=== PATIENT | male | born 1955 | race Caucasian/White ===

== ENCOUNTER 2017-05-14 12:45 | Inpatient (IN) | payer MEDICARE, MEDICAID ==
[~2017-05-14] VITALS: Ht 162.6 cm; Wt 77.7 kg
[~2017-05-14 12:45] MED LIST: ONDANSETRON 2MG/ML, 2ML ONE
[2017-05-14 14:00] VITALS: BP 136/85
[2017-05-14] MEDS ORDERED: LACTATED RINGERS 1,000 ML IV SCH (14:10)
[2017-05-14] MEDS ORDERED: PAIN MEDICATION PO (14:17)
[2017-05-14 14:31] LABS: BASOPHILS # (AUTO) 0.12 x10^3/uL (0-0.1); BASOPHILS % (AUTO) 1 % (0-1); EOSINOPHILS # (AUTO) 0.16 x10^3/uL (0-0.4); EOSINOPHILS % (AUTO) 2 % (1-7); LYMPHOCYTES # (AUTO) 1.96 x10^3/uL (1-3.4); LYMPHOCYTES % (AUTO) 19 % (22-44); MD NO; MEAN CORPUSCULAR HEMOGLOBIN 31.6 pg (27.5-34.5); MEAN CORPUSCULAR HGB CONC 34.5 g/dL (33.2-36.2); MEAN CORPUSCULAR VOLUME 91.7 fL (81-97); MEAN PLATELET VOLUME 8.1 fL (7.4-10.4); MICROSCOPIC NOT IND; MONOCYTES # (AUTO) 0.66 x10^3/uL (0.2-0.8); MONOCYTES % (AUTO) 6 % (2-9); NEUTROPHILS # (AUTO) 7.69 x10^3/uL (1.8-6.8); NEUTROPHILS % (AUTO) 73 % (42-75); PLATELET COUNT 321 x10^3/uL (130-400); RED BLOOD COUNT 5.17 x10^6/uL (4.38-5.82); RED CELL DISTRIBUTION WIDTH 13.1 % (9.4-14.8)
[2017-05-14 14:42] LABS: ALANINE AMINOTRANSFERASE 22 U/L (12-78); ALBUMIN 3.6 g/dL (3.4-5.0); ANION GAP 8 mmol/L (5-15); CALCIUM 8.9 mg/dL (8.5-10.1); CHLORIDE 107 mmol/L (98-107); CREATININE 0.77 mg/dL (0.7-1.3)
[2017-05-14 14:45] LABS: ALKALINE PHOSPHATASE 119 U/L (45-117); BILIRUBIN,TOTAL 0.5 mg/dL (0.2-1.0); TOTAL PROTEIN 7.5 g/dL (6.4-8.2)
[2017-05-14] MEDS ORDERED: BACITRACIN 50,000 UNIT ONE (14:49)
[2017-05-14] MEDS ORDERED: LIDOCAINE/MPF 2%-EPI 1:200K, 20 ML ONE (14:57)
[2017-05-14] MEDS ORDERED: FENTANYL PF 250 MCG/5ML ONE (15:00)
[2017-05-14] MEDS ORDERED: BUPIVACAINE LIPOSOME/PF INFIL ONE ×2 (15:02→18:15)
[2017-05-14] MEDS ORDERED: PROPOFOL 100 ML ONE (15:02)
[2017-05-14] MEDS ORDERED: DEXAMETHASONE 4 MG/ML, 1ML ONE ×2 (15:09)
[2017-05-14] MEDS ORDERED: ROCURONIUM 10 MG/ML,10ML ONE (15:10)
[2017-05-14] MEDS ORDERED: PROPOFOL 10 MG/ML, 20ML ONE ×2 (15:10→17:37)
[2017-05-14] MEDS ORDERED: BUPIVACAINE/PF 0.5% INFIL ONE (15:40)
[2017-05-14] MEDS ORDERED: HYDROmorphone 1 MG/ML, 1ML IV PRN (16:00)
[2017-05-14] MEDS ORDERED: FENTANYL PF 100 MCG/2ML IV PRN (16:00)
[2017-05-14] MEDS ORDERED: OXYcodone 5 MG/5 ML ORAL.SOL UDC PO PRN (16:00)
[2017-05-14] MEDS ORDERED: ACETAMINOPHEN 325 MG TABLET PO PRN ×2 (16:00→19:00)
[2017-05-14] MEDS ORDERED: LABETALOL 5MG/ML, 20ML IV PRN (16:00)
[2017-05-14] MEDS ORDERED: ONDANSETRON 2MG/ML, 2ML IVPush PRN (16:00)
[2017-05-14] MEDS ORDERED: PROMETHAZINE 25 MG/ML, 1ML IV PRN (16:00)
[2017-05-14] MEDS ORDERED: hydrALAzine 20 MG/ML, 1ML IV PRN (16:00)
[2017-05-14] MEDS ORDERED: DIAZEPAM 5 MG/ML, 2ML IVPush PRN (16:00)
[2017-05-14 16:02] LABS: CULTURE INDICATED? NO
[2017-05-14] MEDS ORDERED: TRANEXAMIC ACID 100 MG/ML, 10ML ONE ×4 (16:09→18:00)
[2017-05-14] MEDS ORDERED: VANCOMYCIN 1,000 MG ONE (18:06)
[2017-05-14] MEDS ORDERED: VANCOMYCIN 1,000 MG IM ONE (18:14)
[2017-05-14] MEDS ORDERED: MORPHINE SULFATE 4 MG/ML, 1ML ONE (18:22)
[2017-05-14] MEDS ORDERED: HYDROmorphone PCA 30 MG/30 ML ONE (18:52)
[2017-05-14] MEDS ORDERED: BISACODYL 10 MG SUPP PR PRN (19:00)
[2017-05-14] MEDS ORDERED: HYDROmorphone PCA 30 MG/30 ML IV PRN (19:00)
[2017-05-14] MEDS ORDERED: MAGNESIUM HYDROXIDE 8%, 30ML UDC PO PRN (19:00)
[2017-05-14] MEDS ORDERED: SENNA/DOCUSATE TABLET PO PRN (19:00)
[2017-05-14] MEDS ORDERED: ZOLPIDEM 5MG TABLET PO PRN (19:00)
[2017-05-14] MEDS ORDERED: DIPHENHYDRAMINE 50 MG CAPSULE PO PRN (19:00)
[2017-05-14] MEDS ORDERED: LABETALOL 5MG/ML, 20ML IVPush PRN (19:00)
[2017-05-14] MEDS ORDERED: PHARMACY MAY ADJ FOR RENAL FX MC PRN (19:00)
[2017-05-14] MEDS ORDERED: METHOCARBAMOL 750 MG TABLET PO PRN (19:00)
[2017-05-14] MEDS ORDERED: HYDROmorphone 2MG TABLET PO PRN (19:00)
[2017-05-14] MEDS ORDERED: HYDROcodone/APAP 5/325 TABLET PO PRN (19:00)
[2017-05-14] MEDS ORDERED: OXYcodone 5 MG/5 ML ORAL.SOL UDC ONE (19:19)
[2017-05-14] MEDS ORDERED: ACETAMINOPHEN 650 MG/20.3 ML UDC ONE (19:19)
[2017-05-14 20:00] VITALS: BP 111/78
[2017-05-14] MEDS: ONDANSETRON 2MG/ML, 2ML IVPush PRN (21:52)
[2017-05-14 23:22] VITALS: BP 110/74
[2017-05-15 03:02] VITALS: BP 118/75
[2017-05-15 08:30] VITALS: BP 115/71
[2017-05-15 14:16] VITALS: BP 121/74
[2017-05-15 19:23] VITALS: BP 131/76
[2017-05-16 01:11] VITALS: BP 133/75
[2017-05-16 07:05] VITALS: BP 149/82
[2017-05-16 13:01] VITALS: BP 132/79
[2017-05-16] MEDS: ONDANSETRON 2MG/ML, 2ML IVPush PRN (15:39)
[2017-05-16 19:11] VITALS: BP 127/85
[2017-05-17 01:30] VITALS: BP 134/81
[2017-05-17 08:08] VITALS: BP 141/83
[2017-05-17] MEDS: OXYcodone/APAP 5/325MG TABLET PO PRN (14:59)
[2017-05-17 15:31] VITALS: BP 144/85
[2017-05-17 19:00] VITALS: BP 133/84
[2017-05-18 01:21] VITALS: BP 150/72
[2017-05-18 07:50] VITALS: BP 129/79
[2017-05-18] MEDS: OXYcodone/APAP 5/325MG TABLET PO PRN (08:24)
[2017-05-18 13:46] VITALS: BP 126/82
[2017-05-18 19:00] VITALS: BP 144/81
[2017-05-19] MEDS: ONDANSETRON 2MG/ML, 2ML IVPush PRN (02:34)
[2017-05-19 03:04] VITALS: BP 157/82
[2017-05-19 07:06] VITALS: BP 138/84
[2017-05-19 13:28] VITALS: BP 132/77
[2017-05-19 20:16] VITALS: BP 123/72
[2017-05-20 03:30] VITALS: BP 132/75
[2017-05-20 07:50] VITALS: BP 128/78
[2017-05-20 15:12] VITALS: BP 136/84
[2017-05-20 18:20] VITALS: BP 135/82
[2017-05-20] MEDS ORDERED: FLU VACC QS2017-18 (36MOS+) UP/PF 0.5 ML IM-VACC ONE (19:00)
[2017-05-20] MEDS ORDERED: PNEUMOCOCCAL 23 VACCINE IM-VACC ONE (19:00)
== END 2017-05-20 19:30 | DRG 460 ==
LOC: ORIP 12:45 → 4NOR 20:10
PROVIDERS: ADMIT Orthopaedic Surgery Orthopaedic Surgery of the Spine; ATTEND Orthopaedic Surgery Orthopaedic Surgery of the Spine
PROC: 01NB0ZZ Release Lumbar Nerve, Open Approach (ICD-10-PCS; 2017-05-14)
PROC: 4A11X4G Monitoring of Peripheral Nervous Electrical Activity, Intraoperative, External Approach (ICD-10-PCS; 2017-05-14)
PROC: 0SG1071 Fusion of 2 or more Lumbar Vertebral Joints with Autologous Tissue Substitute, Posterior Approach, Posterior Column, Open Approach (ICD-10-PCS; principal; 2017-05-14 15:00)
DX: M48.061 Spinal stenosis, lumbar region without neurogenic claudication (principal); G96.11 Dural tear; M48.56XA Collapsed vertebra, not elsewhere classified, lumbar region, initial encounter for fracture; M43.16 Spondylolisthesis, lumbar region; Z98.1 Arthrodesis status; M51.36 Other intervertebral disc degeneration, lumbar region
CPT/HCPCS: 36415; 71010; 72100; 80053; 81003; 85025; 86850; 86900; 90686; 90732; 93005; C1713; C9290; J1100; J1170; J2405; J2704; J3010; J3370; J3490; C1762; J7120